=== PATIENT | male | born 1970 | race Hispanic/Latino ===

== ENCOUNTER 2020-03-06 06:45 | Observation (INO) | payer OTHER, MEDICARE ==
[2020-03-06] MEDS ORDERED: ASPIRIN EC 325 MG TAB PO ONE (07:08)
[2020-03-06 08:01] LABS: Basophils # (Auto) 0.1 K/mm3 (0.0-0.1); Basophils % (Auto) 1.2 % (0.0-1.8); Eosinophils # (Auto) 0.3 K/mm3 (0.0-0.4); Eosinophils % (Auto) 3.9 % (0.0-4.3); Hematocrit 47.4 % (35.5-45.6); Hemoglobin 16.3 gm/dl (11.8-15.2); Lymphocytes # (Auto) 2.8 K/mm3 (1.2-5.4); Lymphocytes % (Auto) 34.6 % (13.4-35.0); Mean Corpuscular HGB Conc 34 % (32-34); Mean Corpuscular Volume 95 fl (84-94); Monocytes # (Auto) 1.3 K/mm3 (0.0-0.8); Monocytes % (Auto) 15.9 % (0.0-7.3); Platelet Count 373 K/mm3 (140-440); Red Blood Count 4.97 M/mm3 (3.65-5.03); Red Cell Distribution Width 14.3 % (13.2-15.2)
[2020-03-06] MEDS: SODIUM CHLORIDE 0.9% 500 ML 500 ML IV SCH ×2 (08:06→09:46)
[2020-03-06 08:21] LABS: BUN/Creatinine Ratio 18; Blood Urea Nitrogen 11 mg/dL (9-20); Calcium 8.9 mg/dL (8.4-10.2); Hemolysis Index 3
[2020-03-06 08:24] LABS: INR 0.9 (0.87-1.13)
[2020-03-06] MEDS ORDERED: HEPARIN/NS 5000 UNIT/500ML 1,000 ML IR ONE (08:24)
[2020-03-06] MEDS: fentaNYL 100 MCG/2 ML INJ ONE ×2 (09:43→09:57)
[2020-03-06] MEDS: LIDOCAINE (2%) 20 MG/1 ML VIAL 20 ML MDV INFILTRATI ONE ×2 (09:43→09:58)
[2020-03-06] MEDS: MIDAZOLAM 2 MG/2 ML INJ ONE ×2 (09:43→09:57)
[2020-03-06] MEDS: HEPARIN 10,000 UNITS/10 ML VIAL ONE ×4 (09:44→10:26)
[2020-03-06] MEDS: VERAPAMIL 5 MG/2 ML INJ ONE ×2 (09:45→09:59)
[2020-03-06] MEDS: NITROGLYCERIN SYRINGE 3 ML ONE ×2 (09:46→10:00)
[2020-03-06] MEDS ORDERED: CLOPIDOGREL 75 MG TAB ONE ×2 (10:24→10:37)
[2020-03-06] MEDS ORDERED: ACETAMINOPHEN 325 MG TAB PO PRN (10:33)
[2020-03-06] MEDS ORDERED: traMADol 50 MG TAB PO PRN (10:33)
[2020-03-06] MEDS ORDERED: ONDANSETRON 4 MG/2 ML INJ IV PRN (10:33)
--- NOTE | 2020-03-06 10:40 | Event Note ---
Date: 03/06/20 Patient presented for an outpatient coronary intervention to a 75 to 80% stenosis of the proximal right coronary artery. Coronary intervention was performed successfully via the right radial approach, excellent angiographic result with deployment of a 4.0 mm stent, postdilated with a 4.5 mm balloon catheter. Procedure was well-tolerated by the patient and there are no complications. Patient will be admitted for post intervention observation, anticipate discharge tomorrow morning. On discharge, he will be maintained on guideline directed medical therapy including metoprolol, atorvastatin and dual oral antiplatelet therapy with aspirin and Plavix.
[2020-03-06] MEDS ORDERED: SODIUM CHLORIDE 0.9% 1000 ML 1,000 ML IV SCH (10:45)
--- NOTE | 2020-03-06 10:48 | Cardiac Catherization Report ---
CORONARY ANGIOPLASTY REPORT REASON FOR PROCEDURE: The patient is a 50-year-old man with persistent angina, who underwent a cardiac catheterization at another hospital that demonstrated a 75% stenosis of the proximal right coronary artery. He was referred for coronary intervention due to recurrent chest pain. PROCEDURE: 1. Coronary angioplasty and stenting of the proximal right coronary artery. 2. Sedation start time 0954, end 1017. DESCRIPTION OF PROCEDURE: The patient was prepped and draped in a sterile fashion after informed consent. The right radial cath site was prepped and draped after a negative Christ's test. The right radial artery was entered using Seldinger technique followed by placement of a 6-Sami hydrophilic sheath. Routine radial cocktail was administered via the sheath. We selected a #4 right Angelica guiding catheter and advanced to the right coronary ostium. Pre-intervention angiograms were taken. A 0.014 inch guidewire was introduced into the vessel across the lesional segment. Following wire placement, we proceeded with primary coronary stenting of the lesional segment of the proximal vessel. A 4.0 x 12 mm drug-eluting stent was deployed across the lesional segment and inflated to optimal pressures. Post-stenting, a 4.5 mm noncompliant balloon was used to post-dilate the stenosis to a 4.8-5.0 mm final diameter. Post-stenting and post-dilatation, there was an excellent angiographic result, zero residual stenosis and EFRAÍN 3 flow was maintained down the vessel. Procedure was well tolerated by the patient and there were no complications. The catheters and the wires were removed, sheath removed, and hemostasis achieved using a TR band. The patient was returned to the postprocedure unit in stable condition. There were no complications. CONCLUSION: Successful angioplasty and stenting of the proximal right coronary artery, a 75% stenosis was treated successfully with an excellent angiographic result after a 4.0 mm drug-eluting stent, postdilated to a 4.8-5.0 mm diameter. JOB# [id number] LANA/TJ
[2020-03-06] MEDS ORDERED: METOPROLOL TARTRATE 25 MG TAB PO SCH (11:00)
[2020-03-06] MEDS ORDERED: LISINOPRIL 40 MG TAB PO SCH (11:00)
[2020-03-06] MEDS ORDERED: TAMSULOSIN 0.4 MG CAP PO SCH (12:00)
[2020-03-06] MEDS ORDERED: FLUoxetine 20 MG CAP PO SCH (12:00)
[2020-03-06 15:43] VITALS: BP 147/85
[2020-03-06] MEDS ORDERED: ZOLPIDEM 5 MG TAB PO PRN (21:00)
[2020-03-06] MEDS ORDERED: DIVALPROEX ER 250 MG TAB PO SCH (22:00)
[2020-03-07] MEDS ORDERED: NITROGLYCERIN 0.4 MG PATCH 24HR TD SCH (06:00)
--- NOTE | 2020-03-07 09:21 | Event Note ---
Date: 03/07/20 This note is made after patient discharged himself from the hospital, post coronary intervention, against medical advice. Prior to the procedure he was duly informed of the post procedure protocol, including overnight observation, to which he consented verbally and formally on the consent form. For unclear reasons, he refused to remain in the hospital soon after the procedure, which I felt was unfavorable to his clinical status. He insisted on signing out AMA and leaving for home despite his immediate post intervention status. There were no complaints from him regarding the hospital services that may have led to his anticipated action, just that he "needed to go back home." I informed the risk management office to mediate his signing out AMA, and making sure he was aware of the high risks of post procedure bleeding, myocardial infarction and morbidity. 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
[2020-03-07] MEDS ORDERED: amLODIPine 10 MG TAB PO SCH (10:00)
[2020-03-07] MEDS ORDERED: PRAZOSIN 1 MG CAP PO SCH (10:00)
[2020-03-07] MEDS ORDERED: ASPIRIN EC 325 MG TAB PO SCH (10:00)
[2020-03-07] MEDS ORDERED: CLOPIDOGREL 75 MG TAB PO SCH (10:00)
== END 2020-03-06 16:45 | disposition left against medical advice (07) ==
LOC: CATHLABREC 06:45 → 4A 10:33
PROVIDERS: ADMIT Internal Medicine Cardiovascular Disease; ATTEND Internal Medicine Cardiovascular Disease
DX: R07.89 Other chest pain (principal); I25.10 Atherosclerotic heart disease of native coronary artery without angina pectoris; I10 Essential (primary) hypertension; R94.30 Abnormal result of cardiovascular function study, unspecified; E78.5 Hyperlipidemia, unspecified; N40.0 Benign prostatic hyperplasia without lower urinary tract symptoms; E66.3 Overweight; M54.12 Radiculopathy, cervical region; Z79.02 Long term (current) use of antithrombotics/antiplatelets; Z79.899 Other long term (current) drug therapy; Z68.35 Body mass index [BMI] 35.0-35.9, adult
CPT/HCPCS: 36415; 80048; 85025; 85347; 85610; 85730; 92928; 93005; C1725; C1769; C1874; C1887; C1894; C9600; G0378; J1644; J2250; J3010; J7040; Q9967

== ENCOUNTER 2022-04-05 14:33 | Emergency (ER) | payer MEDICARE ==
--- NOTE | 2022-04-05 15:44 | Cat Scan Report ---
CT ABDOMEN AND PELVIS WITHOUT CONTRAST INDICATION / CLINICAL INFORMATION: pain. TECHNIQUE: Axial CT images were obtained through the abdomen and pelvis without IV contrast. All CT scans at this location are performed using CT dose reduction for ALARA by means of automated exposure control. COMPARISON: None available. FINDINGS: LOWER CHEST: No significant abnormality. LIVER: No significant abnormality. GALLBLADDER: No significant abnormality. BILE DUCTS: No significant abnormality. PANCREAS: No significant abnormality. 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 ADRENALS: No significant abnormality. RIGHT KIDNEY / URETER: No significant abnormality. LEFT KIDNEY / URETER: No significant abnormality. STOMACH / SMALL BOWEL: No significant abnormality. COLON: No significant abnormality. APPENDIX: No significant abnormality. PERITONEUM: No free fluid. No free air. No fluid collection. LYMPH NODES: No significant adenopathy. AORTA / ARTERIES: Mild atherosclerotic calcification without acute abnormality. IVC / VEINS: No significant abnormality. URINARY BLADDER: No significant abnormality. REPRODUCTIVE ORGANS: No significant abnormality. ADDITIONAL FINDINGS: Small broad-based fat containing ventral hernia. SKELETAL SYSTEM: No significant abnormality. IMPRESSION: 1. No significant abnormality. Signer Name: Jeramy Joseph MD Signed: 04/05/2022 3:40 PM Workstation Name: [email or web address]
[2022-04-05 15:54] LABS: Hematocrit 48.2 % (35.5-45.6); Mean Corpuscular HGB Conc 33 % (32-34); Mean Corpuscular Volume 97 fl (84-94); Platelet Count 408 K/mm3 (140-440); Red Blood Count 4.98 M/mm3 (3.65-5.03); Red Cell Distribution Width 13.9 % (13.2-15.2)
[2022-04-05 16:13] LABS: Alanine Aminotransferase 33 units/L (7-56); Albumin 4.6 g/dL (3.9-5); BUN/Creatinine Ratio 15; Blood Urea Nitrogen 16 mg/dL (9-20); Calcium 9.9 mg/dL (8.4-10.2); Hemolysis Index 9
[2022-04-05 16:39] LABS: Basophils # (Auto) 0.1 K/mm3 (0.0-0.1); Eosinophils # (Auto) 0.4 K/mm3 (0.0-0.4); Eosinophils % (Auto) 2.4 % (0.0-4.3); Monocytes # (Auto) 1.6 K/mm3 (0.0-0.8); Monocytes % (Auto) 10.1 % (0.0-7.3)
[2022-04-05 17:41] LABS: Total Cells Counted 100
[2022-04-05 17:43] LABS: Platelet Estimate Consistent w Auto; RBC Morphology Normal
[2022-04-05] MEDS ORDERED: SODIUM CHLORIDE 0.9% 1000 ML 1,000 ML IV ONE (19:54)
[2022-04-05] MEDS ORDERED: TAMSULOSIN 0.4 MG CAP PO ONE (20:26)
[2022-04-05] MEDS ORDERED: ONDANSETRON 4 MG/2 ML INJ IV ONE (20:26)
[2022-04-05] MEDS ORDERED: KETOROLAC 30 MG/1 ML INJ IV ONE (20:26)
[2022-04-05 21:54] LABS: WBC,Urine < 1.0 /HPF (0.0-6.0)
[2022-04-05 22:13] LABS: Color,Urine Yellow (Yellow)
--- NOTE | 2022-04-05 23:29 | Emergency Department Report ---
ED Abdominal Pain HPI - General Chief Complaint: Abdominal Pain Stated Complaint: BACK/KIDNEY PAIN Source: patient Mode of arrival: Ambulatory Limitations: No Limitations - History of Present Illness Initial Comments: Patient is a 52-year-old male with a history of hypertension, coronary artery disease and COPD who presents to the ED with complaint of acute onset persistent left flank pain with nausea and, vomiting and hematuria for the last 2 days. Patient states that he was advised to come to the ED for evaluation by his primary care physician. Patient denies fever, chills, diarrhea, dizziness, syncope, chest pain and shortness of breath, testicular pain, dysuria, urinary frequency and urgency or change in vision. MD Complaint: abdominal pain (LLQ and left flank pain), flank pain (left), other (nausea, vomiting and hematuria) -: Gradual, days(s) (2) Location: LLQ, L flank Radiation: LLQ, L flank Migration to: no migration Severity scale (0 -10): 8 Quality: aching, sharp Improves With: nothing Worsens With: nothing Associated Symptoms: denies other symptoms, nausea, vomiting. denies: diarrhea, fever, chills, constipation, dysuria, hematemesis, hematochezia, melena, anorexia, syncope, other - Related Data Home Medications Medication Instructions Recorded Confirmed Last Taken Clopidogrel [Plavix] 75 mg PO DAILY 03/06/20 03/06/20 03/06/20 75 mg Divalproex ER [Depakote ER] 250 mg PO QHS 03/06/20 03/06/20 03/05/20 250 mg FLUoxetine [PROzac] 20 mg PO DAILY 03/06/20 03/06/20 03/05/20 20 mg Prazosin 1 mg PO DAILY 03/06/20 03/06/20 03/05/20 1 mg amLODIPine 10 mg PO DAILY 03/06/20 03/06/20 03/06/20 10 mg clonazePAM [Klonopin] 1 mg PO QHS 03/06/20 03/06/20 03/05/20 1 mg lisinopriL [Zestril TAB] 40 mg PO DAILY 03/06/20 03/06/20 03/06/20 40 mg Aspirin 325 mg PO QDAY 03/07/20 03/07/20 03/06/20 Previous Rx's Medication Instructions Recorded Last Taken Type Ketorolac [Toradol] 10 mg PO Q8H PRN #20 tab 04/05/22 Unknown Rx Ondansetron [Zofran Odt] 4 mg PO Q8HR PRN #15 tab.rapdis 04/05/22 Unknown Rx Tamsulosin [Flomax] 0.4 mg PO DAILY #10 cap 04/05/22 Unknown Rx traMADoL [Ultram] 50 mg PO Q6HR PRN #12 tablet 04/05/22 Unknown Rx Allergies Allergy/AdvReac Type Severity Reaction Status Date / Time No Known Allergies Allergy Verified 04/05/22 15:01 ED Review of Systems ROS: Stated complaint: BACK/KIDNEY PAIN Other details as noted in HPI Constitutional: denies: chills, fever Eyes: denies: eye pain, eye discharge, vision change ENT: denies: ear pain, throat pain Respiratory: denies: cough, shortness of breath, wheezing Cardiovascular: denies: chest pain, palpitations Endocrine: no symptoms reported Gastrointestinal: abdominal pain (left flank pain), nausea, vomiting. denies: diarrhea Genitourinary: denies: urgency, dysuria Musculoskeletal: denies: back pain, joint swelling, arthralgia Skin: denies: rash, lesions Neurological: denies: headache, weakness, paresthesias Psychiatric: denies: anxiety, depression Hematological/Lymphatic: denies: easy bleeding, easy bruising ED Past Medical Hx - Past Medical History Hx Hypertension: Yes Hx Heart Attack/AMI: Yes (2013) Hx COPD: Yes - Social History Smoking Status: Current Every Day Smoker - Medications Home Medications: Home Medications Medication Instructions Recorded Confirmed Last Taken Type Clopidogrel [Plavix] 75 mg PO DAILY 03/06/20 03/06/20 03/06/20 History 75 mg Divalproex ER [Depakote ER] 250 mg PO QHS 03/06/20 03/06/20 03/05/20 History 250 mg FLUoxetine [PROzac] 20 mg PO DAILY 03/06/20 03/06/20 03/05/20 History 20 mg Prazosin 1 mg PO DAILY 03/06/20 03/06/20 03/05/20 History 1 mg amLODIPine 10 mg PO DAILY 03/06/20 03/06/20 03/06/20 History 10 mg clonazePAM [Klonopin] 1 mg PO QHS 0703/06/20 03/05/20 History 1 mg lisinopriL [Zestril TAB] 40 mg PO DAILY 03/06/20 03/06/20 03/06/20 History 40 mg Aspirin 325 mg PO QDAY 03/07/20 03/07/20 03/06/20 History Ketorolac [Toradol] 10 mg PO Q8H PRN #20 tab 04/05/22 Unknown Rx Ondansetron [Zofran Odt] 4 mg PO Q8HR PRN #15 tab.rapdis 04/05/22 Unknown Rx Tamsulosin [Flomax] 0.4 mg PO DAILY #10 cap 04/05/22 Unknown Rx traMADoL [Ultram] 50 mg PO Q6HR PRN #12 tablet 04/05/22 Unknown Rx ED Physical Exam - General Limitations: No Limitations General appearance: alert, in no apparent distress - Head Head exam: Present: atraumatic, normocephalic, normal inspection - Eye Eye exam: Present: normal appearance, PERRL, EOMI Pupils: Present: normal accommodation - ENT ENT exam: Present: normal exam, normal orophraynx, mucous membranes moist, TM's normal bilaterally, normal external ear exam - Neck Neck exam: Present: normal inspection, full ROM. Absent: tenderness - Respiratory Respiratory exam: Present: normal lung sounds bilaterally. Absent: respiratory distress, wheezes, rales, chest wall tenderness, accessory muscle use, decreased breath sounds - Cardiovascular Cardiovascular Exam: Present: regular rate, normal rhythm, normal heart sounds. Absent: systolic murmur, diastolic murmur, rubs, gallop - GI/Abdominal GI/Abdominal exam: Present: soft, tenderness (Palpable left flank and LLQ tenderness), normal bowel sounds. Absent: guarding, rebound, hyperactive bowel sounds, hypoactive bowel sounds, organomegaly, mass, pulsatile mass - Extremities Exam Extremities exam: Present: normal inspection, full ROM, normal capillary refill. Absent: tenderness, pedal edema, joint swelling, calf tenderness - Back Exam Back exam: Present: normal inspection, full ROM. Absent: tenderness, CVA tenderness (R), CVA tenderness (L), muscle spasm, paraspinal tenderness, vertebral tenderness - Neurological Exam Neurological exam: Present: alert, oriented X3, CN II-XII intact, normal gait, reflexes normal - Psychiatric Psychiatric exam: Present: normal affect, normal mood - Skin Skin exam: Present: warm, dry, intact, normal color. Absent: rash ED Course Vital Signs 04/05/22 14:59 Temperature 98.9 F Pulse Rate 65 Respiratory 18 Rate Blood Pressure 127/71 [Left] O2 Sat by Pulse 99 Oximetry ED Medical Decision Making - Lab Data Result diagrams: 04/05/22 15:18 04/05/22 15:18 - Radiology Data Radiology results: report reviewed, image reviewed [facility] [address] [place] [address] Cat Scan Report Signed Patient: USMAN GUERRERO MR#: [id number] : 1970 Acct:[id number] Age/Sex: 52 / M ADM Date: 04/05/22 Loc: ED Attending Dr: Ordering Physician: VERENA REIS MD Date of Service: 04/05/22 Procedure(s): CT abdomen pelvis wo con Accession Number(s): [id number] cc: ED MD CHATO CT ABDOMEN AND PELVIS WITHOUT CONTRAST INDICATION / CLINICAL INFORMATION: pain. TECHNIQUE: Axial CT images were obtained through the abdomen and pelvis without IV contrast. All CT scans at this location are performed using CT dose reduction for ALARA by means of automated expo sure control. COMPARISON: None available. FINDINGS: LOWER CHEST: No significant abnormality. LIVER: No significant abnormality. GALLBLADDER: No significant abnormality. BILE DUCTS: No significant abnormality. PANCREAS: No significant abnormality. SPLEEN: Spleen is absent with multiple small splenules in the left upper q uadrant. ADRENALS: No significant abnormality. RIGHT KIDNEY / URETER: No significant abnormality. LEFT KIDNEY / URETER: No significant abnormality. STOMACH / SMALL BOWEL: No significant abnormality. COLON: No significant abnormality. APPENDIX: No significant abnormality. PERITONEUM: No free fluid. No free air. No fluid collection. LYMPH NODES: No significant adenopathy. AORTA / ARTERIES: Mild atherosclerotic calcification without acute abnormality. IVC / VEINS: No significant abnormality. URINARY BLADDER: No significant abnormality. REPRODUCTIVE ORGANS: No significant abnormality. ADDITIONAL FINDINGS: Small broad-based fat containing ventral hernia. SKELETAL SYSTEM: No significant abnormality. IMPRESSION: 1. No significant abnormality. Signer Name: Estela Augustin MD Signed: 04/05/2022 3:40 PM Workstation Name: [employer] Transcribed By: NATALI Dictated By: ESTELA AUGUSTIN MD Electronically Authenticated By: ESTELA AUGUSTIN MD Signed Date/Time: 04/05/22 1540 DD/ 1536 TD/TT: Print - Medical Decision Making This is a 52-year-old male with a history of hypertension, coronary artery disease and COPD who presents to the ED with complaint of acute onset persistent left flank pain with nausea and, vomiting and hematuria for the last 2 days. Patient states that he was advised to come to the ED for evaluation by his primary care physician. In the ED, patient is alert and oriented x3 and is not in any distress. Patient is hemodynamically stable. Patient was treated for pain in the ED. Lab test results were reviewed and showed acute leukocytosis of 16,000, acute hyperglycemia 130 mg/dL and hyponatremia of 131 mmol/L. Abdomen pelvis CT scan without contrast showed no acute abnormalities, no evidence of kidney stones. Patient symptoms are likely due to a passed kidney stone that probably passed during the time he was having pain. Patient was discharged home on medications and advised to follow-up with his primary care physician in 7 to 10 days for reevaluation or return to the ED immediately if symptoms get worse. - Differential Diagnosis kdiney stones, UTI; Diverticulitis; Colitis; Muscle spasm; muscle strain Critical care attestation.: If time is entered above; I have spent that time in minutes in the direct care of this critically ill patient, excluding procedure time. ED Disposition Clinical Impression: Acute abdominal pain in left flank, Pain due to calculus of kidney, Hematuria of unknown etiology Disposition: 01 HOME / SELF CARE / HOMELESS Is pt being admited?: No Does the pt Need Aspirin: No Condition: Stable Instructions: Renal Colic, [id number], Kidney Stones, [id number], Flank Pain, Adult, [id number], Abdominal Pain, Adult, [id number], Hematuria, Adult Additional Instructions: All lab test results were reviewed, and the abdomen pelvis CT scan without contrast showed no acute abnormalities. Your symptoms are likely due to kidney stone which has since passed. Therefore take medication as needed for pain, drink plenty of fluids, follow-up with your primary care physician in 7 to 10 days for reevaluation or return to the ED immediately if symptoms get worse. Prescriptions: Tamsulosin [Flomax] 0.4 mg PO DAILY #10 cap Ketorolac [Toradol] 10 mg PO Q8H PRN #20 tab PRN Reason: Pain traMADoL [Ultram] 50 mg PO Q6HR PRN #12 tablet PRN Reason: Pain Ondansetron [Zofran Odt] 4 mg PO Q8HR PRN #15 tab.rapdis PRN Reason: Nausea Referrals: [facility] [Provider Group] - 7-10 days Time of Disposition: 23:29 Print Language: YI
[2022-04-06] MEDS ORDERED: MORPHINE 4 MG/1 ML INJ IV ONE (00:03)
[2022-04-06 00:22] VITALS: BP 122/70
== END 2022-04-06 00:53 | disposition home or self-care (01) ==
LOC: ED 14:33
DX: R10.32 Left lower quadrant pain (principal); N20.0 Calculus of kidney; R31.9 Hematuria, unspecified; F17.200 Nicotine dependence, unspecified, uncomplicated; I10 Essential (primary) hypertension
CPT/HCPCS: 36415; 74176; 80053; 81001; 85007; 85025; 96361; 96374; 96375; 99284; J1885; J2270; J2405; J7030

== ENCOUNTER 2022-04-10 17:33 | Emergency (ER) | payer MEDICARE ==
[2022-04-10 18:13] VITALS: BP 126/78
== END 2022-04-10 23:55 | disposition left against medical advice (07) ==
LOC: ED 17:33
DX: Z00.00 Encounter for general adult medical examination without abnormal findings (principal); Z53.21 Procedure and treatment not carried out due to patient leaving prior to being seen by health care provider